=== PATIENT | female | born 1995 | race American Indian/Alaskan Native ===

== ENCOUNTER 2017-07-13 12:52 | Outpatient (CLI) | payer MEDICAID ==
[2017-07-13 13:16] VITALS: BP 103/69
[2017-07-13] MEDS ORDERED: LACTATED RINGERS 500 ML IV ONE (13:24)
[2017-07-13] MEDS ORDERED: LACTATED RINGERS 1,000 ML ONE (13:25)
[2017-07-13] MEDS ORDERED: LACTATED RINGERS 1,000 ML IV SCH (14:00)
[2017-07-13 14:01] LABS: Bacteria,Urine 1+ /HPF (Negative); Bilirubin,Urine NEG (Negative); Blood,Urine NEG (Negative); Color,Urine Amber (Yellow); Mucus,Urine 3+ /HPF
[2017-07-13 14:07] LABS: Amphetamine Screen,Urine PRESUMPTIVE NEGATIVE; Benzodiazepines Screen,Urine PRESUMPTIVE NEGATIVE; Cannabinoid Screen,Urine PRESUMPTIVE NEGATIVE; Cocaine Screen,Urine PRESUMPTIVE NEGATIVE; Methadone Screen,Urine PRESUMPTIVE NEGATIVE; Opiate Screen,Urine PRESUMPTIVE NEGATIVE
[2017-07-13] MEDS ORDERED: BRETHINE SUB-Q ONE (16:00)
== END 2017-07-13 16:40 | disposition home or self-care (01) ==
LOC: TRG 12:52
PROVIDERS: ATTEND Obstetrics & Gynecology
DX: O47.03 False labor before 37 completed weeks of gestation, third trimester (principal); Z79.899 Other long term (current) drug therapy; Z3A.32 32 weeks gestation of pregnancy
CPT/HCPCS: 36415; 59025; 80307; 81001; 82731; 96372; J3105; J7120

== ENCOUNTER 2018-09-27 06:13 | Emergency (ER) | payer MEDICAID ==
[2018-09-27 06:44] LABS: Basophils # (Auto) 0.1 K/mm3 (0.0-0.1); Basophils % (Auto) 0.8 % (0.0-1.8); Eosinophils # (Auto) 0.1 K/mm3 (0.0-0.4); Eosinophils % (Auto) 1.1 % (0.0-4.3); Hematocrit 32.1 % (30.3-42.9); Hemoglobin 10.9 gm/dl (10.1-14.3); Lymphocytes # (Auto) 2.5 K/mm3 (1.2-5.4); Lymphocytes % (Auto) 27.3 % (13.4-35.0); Mean Corpuscular HGB Conc 34 % (30-34); Mean Corpuscular Volume 94 fl (79-97); Monocytes # (Auto) 0.6 K/mm3 (0.0-0.8); Monocytes % (Auto) 6.7 % (0.0-7.3); Platelet Count 259 K/mm3 (140-440); Red Blood Count 3.43 M/mm3 (3.65-5.03); Red Cell Distribution Width 14.8 % (13.2-15.2)
[2018-09-27 06:49] LABS: Bilirubin,Urine NEG (Negative); Blood,Urine NEG (Negative); Color,Urine Straw (Yellow); Protein,Urine <15 mg/dL mg/dL (Negative); Urobilinogen,Urine < 2.0 mg/dL (<2.0)
[2018-09-27 07:18] LABS: Alanine Aminotransferase 7 units/L (7-56); Albumin 3.6 g/dL (3.9-5); BUN/Creatinine Ratio 14; Blood Urea Nitrogen 7 mg/dL (7-17); Calcium 8.5 mg/dL (8.4-10.2); Hemolysis Index 4
--- NOTE | 2018-09-27 08:58 | Emergency Department Report ---
ED Female HPI - General Chief complaint: Abdominal Pain Stated complaint: ABD/VAGINAL PAIN Time Seen by Provider: 09/27/18 08:01 Source: patient Mode of arrival: Ambulatory Limitations: No Limitations - History of Present Illness Initial comments: 23-year-old -[place] female reports pelvic pressure 4 days. Patient reports she has discharge with odor and some irritation. Patient also reports she thinks she may be . Patient is 3 para 2. Last menstrual cycle was 07/06/2018. Patient reports she's had a positive home test. Patient has no past medical history currently takes no medications on a daily basis. Patient does admit to having unprotected intercourse with 2 men. MD Complaint: vaginal discharge, possible STD -: days(s) (4) Location: suprapubic Radiation: non-radiating Quality: other (pressure) Improves with: none Worsens with: none Are you Now?: Yes Last Menstrual Period: 07/06/18 EDC: 04/12/19 Associated Symptoms: vaginal discharge. denies: vaginal bleeding, nausea/vomiting, fever/chills - Related Data Sexually active: Yes (2 minutes unprotected last 3 months) : 3 Para: 2 (5 year old 1 year old) Previous Rx's Medication Instructions Recorded Last Taken Type Phenazopyridine [Pyridium] 100 mg PO TID PRN #6 tab 04/20/15 Unknown Rx Sulfamethoxazole/Trimethoprim 1 each PO BID #14 tablet 04/20/15 Unknown Rx [Bactrim DS TAB] Ibuprofen [Motrin] 800 mg PO Q8HR PRN #30 tablet 01/07/16 Unknown Rx Nitrofurantoin [place]/M-Cryst 100 mg PO Q12HR #14 capsule 03/07/18 Unknown Rx [Macrobid CAP] metroNIDAZOLE [Flagyl] 500 mg PO Q12HR #20 tab 03/07/18 Unknown Rx Azithromycin [Zithromax TAB] 1,000 mg PO QDAY #2 tablet 09/27/18 Unknown Rx Vit No.129/Iron/Folic 1 each PO QDAY #90 tablet 09/27/18 Unknown Rx [ Tablet] metroNIDAZOLE [metroNIDAZOLE 70 gm VG QHS #7 gel.w.appl 09/27/18 Unknown Rx VAGINAL 0.75% gel] Allergies Allergy/AdvReac Type Severity Reaction Status Date / Time jp Allergy Swelling Verified 01/07/16 19:41 ED Review of Systems ROS: Stated complaint: ABD/VAGINAL PAIN Other details as noted in HPI Comment: All other systems reviewed and negative Constitutional: denies: chills, fever Eyes: denies: eye pain, eye discharge, vision change ENT: denies: ear pain, throat pain Respiratory: denies: cough, shortness of breath, wheezing Cardiovascular: denies: chest pain, palpitations Endocrine: no symptoms reported Gastrointestinal: other (pelvic pressure) Genitourinary: discharge Musculoskeletal: denies: back pain, joint swelling, arthralgia Skin: denies: rash, lesions Neurological: denies: headache, weakness, paresthesias Psychiatric: denies: anxiety, depression Hematological/Lymphatic: denies: easy bleeding, easy bruising ED Past Medical Hx - Past Medical History Previous Medical History?: Yes Hx Hypertension: No Hx Diabetes: No Hx Deep Vein Thrombosis: No Hx Renal Disease: No Hx Sickle Cell Disease: No Hx Seizures: No Hx Asthma: No Hx HIV: No - Surgical History Past Surgical History?: No - Social History Smoking Status: Never Smoker Substance Use Type: None - Medications Home Medications: Home Medications Medication Instructions Recorded Confirmed Last Taken Type Phenazopyridine [Pyridium] 100 mg PO TID PRN #6 tab 04/20/15 Unknown Rx Sulfamethoxazole/Trimethoprim 1 each PO BID #14 tablet 04/20/15 Unknown Rx [Bactrim DS TAB] Ibuprofen [Motrin] 800 mg PO Q8HR PRN #30 tablet 01/07/16 Unknown Rx Nitrofurantoin [place]/M-Cryst 100 mg PO Q12HR #14 capsule 03/07/18 Unknown Rx [Macrobid CAP] metroNIDAZOLE [Flagyl] 500 mg PO Q12HR #20 tab 03/07/18 Unknown Rx Azithromycin [Zithromax TAB] 1,000 mg PO QDAY #2 tablet 09/27/18 Unknown Rx Vit No.129/Iron/Folic 1 each PO QDAY #90 tablet 09/27/18 Unknown Rx [ Tablet] metroNIDAZOLE [metroNIDAZOLE 70 gm VG QHS #7 gel.w.appl 09/27/18 Unknown Rx VAGINAL 0.75% gel] ED Physical Exam - General Limitations: No Limitations General appearance: alert, in no apparent distress - Head Head exam: Present: atraumatic, normocephalic - Eye Eye exam: Present: normal appearance - ENT ENT exam: Present: mucous membranes moist - Neck Neck exam: Present: normal inspection - Respiratory Respiratory exam: Present: normal lung sounds bilaterally. Absent: respiratory distress - Cardiovascular Cardiovascular Exam: Present: regular rate - GI/Abdominal GI/Abdominal exam: Present: soft, normal bowel sounds. Absent: distended, tenderness, guarding, rebound - External exam: Present: normal external exam Speculum exam: Present: vaginal discharge, cervical discharge Bi-manual exam: Present: cervical motion tendernes, uterine enlargement. Absent: adnexal tenderness, adnexal mass, uterine tenderness - Extremities Exam Extremities exam: Present: normal inspection, full ROM - Back Exam Back exam: Present: normal inspection, full ROM - Neurological Exam Neurological exam: Present: alert, oriented X3 - Psychiatric Psychiatric exam: Present: normal affect, normal mood - Skin Skin exam: Present: warm, dry, intact, normal color. Absent: rash ED Course Vital Signs 09/27/18 06:15 Temperature 97.8 F Pulse Rate 108 H Respiratory 16 Rate Blood Pressure 99/68 O2 Sat by Pulse 98 Oximetry ED Medical Decision Making - Lab Data Result diagrams: 09/27/18 06:31 09/27/18 06:31 - Radiology Data Radiology results: report reviewed Patient: APOLINAR MARTINEZ MR#: [id number] : 1995 Acct:[id number] Age/Sex: 23 / F ADM Date: 09/27/18 Loc: ED Attending Dr: Ordering Physician: RAJESH ADAME Date of Service: 09/27/18 Procedure(s): US OB >= 14 weeks Fetus Accession Number(s): [id number] cc: RAJESH ADAME OB ULTRASOUND History: pelvic pain. Technique: Transabdominal ultrasound with Doppler interrogation. Gestation: Single Position: Cephalic Amniotic Fluid: Within normal limits Placenta: Anterior, left lateral Placental Grade: 1 Heart Rate: 156 BPM Cervical length: 4.7 cm (Normal > 3 cm) BPD: 5.3 cm = 22 w 1 d HC: 20.5 cm = 22 w 4 d AC: 18.3 cm = 23 w 1 d FL: 4.0 cm = 22 w 5 d HC/AC Ratio: 1.12 Cephalic Index: 75.6 Estimated Weight: 544 grams US Gest. Age = 22 w 5 d EDC: 01/26/19 Comment: Trace fluid is identified in the vertex of the heart which could represent a small pericardial effusion. Followup is recommended. IMPRESSION: Viable, single intrauterine as described. Transcribed By: TTR Dictated By: PAO BRYANT JR, MD Electronically Authenticated By: PAO BRYANT JR, MD Signed Date/Time: 09/27/18 1012 DD/ 1007 TD/TT: 09/27/18 1012 - Medical Decision Making 23-year-old -[place] female comes in for 4 day history of pelvic pressure and vaginal discharge with odor. Positive test at home and positive test in the ER. Ultrasound has been ordered for OB, wet prep and gonorrhea chlamydia test has been sent to. Ultrasound results shows the patient is 22 weeks and 5 days with pericardial effusion of the embryo heart. Wet prep shows patient has Trichomonas and candidiasis. Patient will be treated for gonorrhea and chla mydia as well as Trichomonas and bacterial vaginosis. I discussed in length with patient that she needs to follow up with [facility]. As her ultrasound shows that there is fluid around the embryo heart. I also discussed the patient she has to start care I will start patient on vitamins I will treat her for trichomonas with MetroGel she will be treated for gonorrhea Rocephin 500 mg patient will be given a prescription for azithromycin 1 g by mouth. I have listed several [facility] offices on patient's discharge summary. Critical care attestation.: If time is entered above; I have spent that time in minutes in the direct care of this critically ill patient, excluding procedure time. ED Disposition Clinical Impression: 22 weeks gestation of , Trichomonas vaginalis infection, Candidiasis of genitalia in female, Screening for STDs (sexually transmitted diseases) Disposition: DC-01 TO HOME OR SELFCARE Is pt being admited?: No Does the pt Need Aspirin: No Condition: Stable Instructions: Abdominal Pain (ED) Additional Instructions: Complete antibiotics as prescribed. Take vitamins as prescribed. It is very very important for you to get into [facility]. You need to follow up as there is fluid around the fetus heart. I have listed several [facility] providers in her discharge summary. Prescriptions: metroNIDAZOLE [metroNIDAZOLE VAGINAL 0.75% gel] 70 gm VG QHS #7 gel.w.appl Vit No.129/Iron/Folic [ Tablet] 1 each PO QDAY #90 tablet Azithromycin [Zithromax TAB] 1,000 mg PO QDAY #2 tablet Referrals: [facility] [Provider Group] - 3-5 Days [facility] [Provider Group] - 3-5 Days [facility] [Provider Group] - 3-5 Days [facility] [Provider Group] - 3-5 Days
--- NOTE | 2018-09-27 10:17 | Ultrasound Report ---
OB ULTRASOUND History: pelvic pain. Technique: Transabdominal ultrasound with Doppler interrogation. Gestation: Single Position: Cephalic Amniotic Fluid: Within normal limits Placenta: Anterior, left lateral Placental Grade: 1 Heart Rate: 156 BPM Cervical length: 4.7 cm (Normal > 3 cm) BPD: 5.3 cm = 22 w 1 d HC: 20.5 cm = 22 w 4 d AC: 18.3 cm = 23 w 1 d FL: 4.0 cm = 22 w 5 d HC/AC Ratio: 1.12 Cephalic Index: 75.6 Estimated Weight: 544 grams US Gest. Age = 22 w 5 d EDC: 01/26/19 Comment: Trace fluid is identified in the vertex of the heart which could represent a small pericardial effusion. Followup is recommended. IMPRESSION: Viable, single intrauterine as described.
[2018-09-27] MEDS ORDERED: ROCEPHIN IM ONE (10:46)
[2018-09-27] MEDS ORDERED: XYLOCAINE 1% MPF 5 mL INFILTRATI ONE (10:46)
[2018-09-27 11:20] VITALS: BP 98/51
== END 2018-09-27 11:18 | disposition home or self-care (01) ==
LOC: ED 06:13
DX: O98.312 Other infections with a predominantly sexual mode of transmission complicating pregnancy, second trimester (principal); A59.01 Trichomonal vulvovaginitis; O98.812 Other maternal infectious and parasitic diseases complicating pregnancy, second trimester; B37.3 Candidiasis of vulva and vagina; Z3A.22 22 weeks gestation of pregnancy; Z91.018 Allergy to other foods
CPT/HCPCS: 36415; 76805; 80053; 81001; 84702; 84703; 85025; 87210; 87591; 96372; 99284; J0696

== ENCOUNTER 2019-01-09 20:53 | Inpatient (IN) | payer MEDICAID ==
[2019-01-09] MEDS ORDERED: ZOFRAN IV PRN (22:04)
[2019-01-09] MEDS ORDERED: BRETHINE SUB-Q PRN (22:04)
[2019-01-09] MEDS ORDERED: AMPICILLIN/NS 2 GM/100 ML 2 GM/100 ML BAG IV ONE (22:04)
[2019-01-09] MEDS ORDERED: SUBLIMAZE IV PRN (22:04)
[2019-01-09] MEDS ORDERED: STADOL IV PRN (22:04)
[2019-01-09] MEDS ORDERED: LACTATED RINGERS 1,000 ML ONE (22:04)
[2019-01-09] MEDS ORDERED: BRETHINE IVP PRN (22:04)
[2019-01-09] MEDS ORDERED: XYLOCAINE 2% INFILTRATI ONE (22:04)
[2019-01-09] MEDS ORDERED: MINERAL OIL PO PRN (22:04)
[2019-01-09] MEDS ORDERED: TYLENOL PO ONE (22:24)
[2019-01-09 22:36] LABS: Hematocrit 34.7 % (30.3-42.9); Hemoglobin 11.4 gm/dl (10.1-14.3); Mean Corpuscular HGB Conc 33 % (30-34); Mean Corpuscular Volume 91 fl (79-97); Platelet Count 241 K/mm3 (140-440); Red Blood Count 3.79 M/mm3 (3.65-5.03); Red Cell Distribution Width 14.9 % (13.2-15.2)
[2019-01-09] MEDS ORDERED: PITOCin/NS 30 UNIT/500ML 30 UNITS/500 ML BAG IV SCH ×2 (23:00→23:45)
[2019-01-09] MEDS ORDERED: LACTATED RINGERS 1,000 ML IV SCH ×2 (23:00→23:45)
[2019-01-09 23:07] LABS: Hepatitis C Virus Antibody Non-Reactive (NonReactive)
--- NOTE | 2019-01-09 23:20 | History and Physical Report ---
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 States course was complicated by Trichomonas, which was treated. Also Vitamin D deficiency, taking Supplements. States she was co-managed with [facility] due to fluid being around the baby's heart, states that condition resolved at the end november, and she was released from [facility]. Past History Past Medical History: no pertinent history Past Surgical History: no surgical history HADOOP DEVELOPER History: trichomonas Family/Genetic History: none Social history: single - Obstetrical History Expected Date of Delivery: 01/23/19 Actual Gestation: 38 Week(s) 0 Day(s) : 3 Para: 2 Hx # Term Pregnancies: 2 Number of Living Children: 2 #1 Infant Gender: Male year: 2,013 Birthweight: 2.948 kg Method of Delivery: Vaginal Gestational age at delivery: 40 Complications: none #2 Infant Gender: Male year: 2,018 Birthweight: 2.523 kg Method of Delivery: Vaginal Gestational age at delivery: 40 Complications: none Medications and Allergies Allergies Allergy/AdvReac Type Severity Reaction Status Date / Time jp Allergy Swelling Verified 01/07/16 19:41 Home Medications Medication Instructions Recorded Confirmed Last Taken Type Sertraline [Zoloft] 5 mg PO QDAY 01/09/19 01/09/19 01/07/19 History Active Meds: Active Medications Butorphanol Tartrate (Stadol) 2 mg IV Q2H PRN PRN Reason: Pain , Severe (7-10) Ephedrine Sulfate (Ephedrine Sulfate) 10 mg IV Q2M PRN PRN Reason: Hypotension Ephedrine Sulfate (Ephedrine Sulfate) 10 mg IV Q2M PRN PRN Reason: Hypotension Fentanyl (Sublimaze) 100 mcg IV Q2H PRN PRN Reason: Labor Pain Oxytocin/Sodium Chloride (Pitocin/Ns 20 Unit/1000ml Drip) 20 units in 1,000 mls @ 125 mls/hr IV DIRECT WYATT Oxytocin/Sodium Chloride (Pitocin/Ns 30 Unit/500ml) 30 units in 500 mls @ 1 mls/hr IV TITR WYATT; Protocol Lactated Ringer's (Lactated Ringers) 1,000 mls @ 125 mls/hr IV DIRECT WYATT Last Admin: 01/09/19 22:19 Dose: 125 mls/hr Documented by: Ampicillin Sodium (Ampicillin/Ns 1 Gm/50 Ml) 1 gm in 50 mls @ 100 mls/hr IV Q4HR WYATT; Protocol Oxytocin/Sodium Chloride (Pitocin/Ns 30 Unit/500ml) 30 units in 500 mls @ 2 mls/hr IV TITR WYATT; Protocol Lactated Ringer's (Lactated Ringers) 1,000 mls @ 125 mls/hr IV DIRECT WYATT Mineral Oil (Mineral Oil) 30 ml PO QHS PRN PRN Reason: Constipation Ondansetron HCl (Zofran) 4 mg IV Q8H PRN PRN Reason: Nausea And Vomiting Terbutaline Sulfate (Brethine) 0.25 mg SUB-Q ONCE PRN PRN Reason: Hyperstimulation/Hypertonicity Terbutaline Sulfate (Brethine) 0.25 mg IVP ONCE PRN PRN Reason: Hyperstimulation/Hypertonicity Review of Systems All systems: negative - Vital Signs Vital signs: Vital Signs Pulse BP 122 H 108/66 01/09/19 21:33 01/09/19 21:33 Temp Pulse Resp BP Pulse Ox 101.1 F H 78 18 129/70 01/09/19 21:50 01/09/19 23:09 01/09/19 21:50 01/09/19 23:09 - Physical Exam Breasts: Positive: normal Cardiovascular: Other (maternal tachycardia) Abdomen: Positive: normal appearance, soft, normal bowel sounds Genitourinary (Female): Positive: normal external genitalia, normal perenium Vagina: Positive: normal moisture Uterus: Positive: enlarged Anus/Rectum: Positive: normal perianal skin Extremities: Positive: normal - Obstetrical FHR: category 2 FHR comments: FHR: 180, modrate varability, -accels, occ. mild varabile decel Uterine Contraction Monitor Mode: External Cervical Dilatation: 6 (intact; bulging bag) Cervical Effacement Percentage: 90 station: 2 Uterine Contraction Frequency (min): 2-3 Uterine Contraction Pattern: Regular Uterine Tone Measurement Phase: Resting Uterine Contraction Intensity: Moderate Results Result Diagrams: 01/09/19 22:18 All other labs normal. Assessment and Plan A: IUP @ 38 Weeks Tachycardia Maternal Tachycardia Maternal Fever Active Labor GBS unknown P: Admit to L&D per Routine Orders GBS Prophylaxis IV Fluid Bolus IV Pain Control
--- NOTE | 2019-01-10 00:53 | Progress Note ---
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 States course was complicated by Trichomonas, which was treated. Also Vitamin D deficiency, taking Supplements. States she was co-managed with [facility] due to fluid being around the baby's heart, states that condition resolved at the end of November, and she was released from [facility]. Patient reports: new complaints, movement normal, contractions Objective - Vital Signs Vital Signs: Vital Signs - 12hr 01/09/19 01/09/19 01/09/19 21:33 21:50 23:09 Temperature 101.1 F H Pulse Rate 122 H 122 H 78 Respiratory 18 Rate Blood Pressure 108/66 129/70 Blood Pressure 108/66 [Left] 01/09/19 01/09/19 01/10/19 23:25 23:40 00:09 Temperature Pulse Rate 81 97 H 110 H Respiratory Rate Blood Pressure 110/59 95/51 108/66 Blood Pressure [Left] 01/10/19 01/10/19 00:24 00:39 Temperature Pulse Rate 85 104 H Respiratory Rate Blood Pressure 116/70 97/51 Blood Pressure [Left] - Exam Breasts: normal Cardiovascular: Regular rate Lungs: Clear to auscultation, Normal air movement Abdomen: Present: normal appearance, soft, normal bowel sounds Uterus: Present: normal, firm, fundal height above umbilicus FHR: category 2 FHR comments: FHR: 160, moderate varability, -accels, +early decels Uterine Contraction Monitor Mode: External Cervical Dilatation: 7 (Moderate amount of clear fluid upon AROM @ 0044) Cervical Effacement Percentage: 80 station: 0 Uterine Contraction Frequency (min): 2 Uterine Contraction Pattern: Regular Uterine Tone Measurement Phase: Resting Uterine Contraction Intensity: Mild Extremities: normal - Labs Labs: Laboratory Results - last 24 hr 01/09/19 01/09/19 01/09/19 22:18 22:18 22:18 WBC 10.3 RBC 3.79 Hgb 11.4 Hct 34.7 MCV 91 MCH 30 MCHC 33 RDW 14.9 Plt Count 241 Sickle Cell Screen Negative Hep Bs Antigen Hepatitis C Antibody Non-reactive HIV 1&2 Antibody Rapid HIV P24 Antigen Rubella IgG Antibody Immune Blood Type O POSITIVE Antibody Screen Negative 01/09/19 01/09/19 22:18 22:18 WBC RBC Hgb Hct MCV MCH MCHC RDW Plt Count Sickle Cell Screen Hep Bs Antigen Non-reactive Hepatitis C Antibody HIV 1&2 Antibody Rapid Non react HIV P24 Antigen Non react Rubella IgG Antibody Blood Type Antibody Screen
[2019-01-10] MEDS ORDERED: NARCAN 2 MG/2 ML IV PRN (01:24)
--- NOTE | 2019-01-10 01:24 | Anesthesia Consultation ---
Anesthesia Consult and Med Hx Date of service: 01/10/19 - Airway Anesthetic Teeth Evaluation: Good ROM Head & Neck: Adequate Mental/Hyoid Distance: Adequate Mallampati Class: Class II Intubation Access Assessment: Probably Good - Pulmonary Exam CTA: Yes - Cardiac Exam Cardiac Exam: RRR - Pre-Operative Health Status ASA Pre-Surgery Classification: ASA2 Proposed Anesthetic Plan: Epidural - Pulmonary Hx Asthma: No - Cardiovascular System Hx Hypertension: No - Central Nervous System Hx Seizures: No Hx Psychiatric Problems: Yes (anxiety-takes Zoloft) - Endocrine Hx Renal Disease: No Hx Hypothyroidism: No Hx Hyperthyroidism: No - Hematic Hx Anemia: No Hx Sickle Cell Disease: No - Other Systems Hx Alcohol Use: No
[2019-01-10] MEDS ORDERED: TUCKS PAD TP PRN (01:39)
[2019-01-10] MEDS ORDERED: BENADRYL PO PRN (01:39)
[2019-01-10] MEDS ORDERED: MILK OF MAGNESIA PO PRN (01:39)
[2019-01-10] MEDS: PITOCin/NS 20 UNIT/1000ML DRIP 20 UNITS/1,000 ML BAG IV SCH ×2 (01:41→03:20)
--- NOTE | 2019-01-10 01:45 | Procedure Note ---
OB Delivery Note - Delivery Date of Delivery: 01/10/19 (0121) Surgeon: SUSHIL DOWNING Estimated blood loss: other (150) - Vaginal Delivery presentation: vertex Delivery position: OA Intrapartum events: extend. tachycardia Delivery induction: none Delivery augmentation: rupture of membranes Delivery monitor: external FHT, external uterine Route of delivery: Delivery placenta: spontaneous Delivery cord: 3 umbilical vessels Episiotomy: none Delivery laceration: none Anesthesia: epidural Delivery comments: of a live 6'2 male infant over a intact perineum under epidural anesthesia with Apgars of 8 and 9 at 0121 on 01/10/2019. directly to maternal abd/chest, skin to skin contact. Spontaneous delivery of placenta complete and intact with [place] side presenting at 0124. Fundus is firm and midline located 4 below the U. Lochia is scant. Delayed cord clamping and cutting; Cord cut by maternal grandmother. Cord blood collected; Placenta discarded. - Infant A at 1 minute: 8 at 5 minutes: 9 Infant Gender: Male (6'2)
[2019-01-10] MEDS ORDERED: fentaNYL-BUPIV 2 MCG/ML-0.125% 200 MCG/100 ML BAG EPIDURAL SCH (02:00)
[2019-01-10] MEDS ORDERED: SODIUM CHLORIDE FLUSH SYRINGE 10 ML IV PRN (02:00)
[2019-01-10] MEDS ORDERED: AMPICILLIN/NS 1 GM/50 ML 1 GM/50 ML BAG IV SCH (02:05)
[2019-01-10] MEDS: IBUPROFEN PO SCH ×2 (02:58→10:22)
[2019-01-10] MEDS: NORCO 5/325 PO PRN ×4 (04:57→21:59)
[2019-01-10] MEDS ORDERED: SERTRALINE PO SCH (10:00)
[2019-01-10] MEDS: PRENATAL VITAMIN PO SCH (10:23)
[2019-01-10 14:00] LABS: Hematocrit 29.9 % (30.3-42.9)
[2019-01-11] MEDS: ULTRAM PO PRN ×3 (02:06→21:14)
[2019-01-11] MEDS: IBUPROFEN PO SCH ×3 (06:07→20:00)
--- NOTE | 2019-01-11 09:34 | Progress Note ---
Assessment and Plan - Patient Problems (1) (normal spontaneous vaginal delivery) Current Visit: Yes Status: Acute Plan to address problem: Continue routine PP orders Anticipate d/c home tomorrow F/U in office in 6 wks (2) Anemia Current Visit: Yes Status: Acute Qualifiers: Anemia type: other cause Other causes of anemia: acute posthemorrhagic Qualified Code(s): D62 - Acute posthemorrhagic anemia Plan to address problem: Asymptomatic Ferrous sulfate 325 mg po BID Increase iron rich foods into diet Subjective - Subjective Date of service: 01/11/19 Principal diagnosis: ; Anemia Interval history: See admission H & P; OB delivery summary and PP progress notes Patient reports: appetite normal, voiding normally, flatus, pain poorly controlled (but states that Tramadol is helping more than anything else), ambulating normally : doing well () Objective - Vital Signs Latest vital signs: Vital Signs Temp Pulse Resp BP 01/11/19 00:30 98.4 F 69 19 120/76 01/10/19 15:17 98.2 F 92 H 18 140/70 Intake and Output 01/10/19 01/11/19 01/11/19 23:59 07:59 15:59 Intake Total 240 300 Balance 240 300 Intake: Oral 240 Intake, Free Water 300 Other: Total, Intake Amount 240 # Voids Void 1 - Exam Breasts: Present: normal Cardiovascular: Present: Regular rate Lungs: Present: Normal air movement Abdomen: Present: soft, normal bowel sounds Uterus: Present: firm, fundal height below umbilicus (U-1) Extremities: Present: normal Deep Tendon Reflex Grade: Normal +2 - Labs Labs: Abnormal lab results 01/10/19 Range/Units 13:48 Hgb 10.0 L (10.1-14.3) gm/dl Hct 29.9 L (30.3-42.9) %
--- NOTE | 2019-01-11 09:39 | Discharge Summary ---
Providers - Providers Date of Admission: 01/09/19 21:48 Date of discharge: 01/12/19 (1200) Attending physician: BLANCA BAIN MD Primary care physician: BLANCA BAIN MD Hospitalization Reason for admission: active labor, IUP at term Delivery: Episiotomy: none Laceration: none Other procedures: none complications: none Discharge diagnosis: IUP at term delivered, other (Anemia) Condition at discharge: Stable Disposition: [place]-01 TO HOME OR SELFCARE - Discharge Diagnoses (1) (normal spontaneous vaginal delivery) Status: Acute (2) Anemia Status: Acute Qualifiers: Anemia type: other cause Other causes of anemia: acute posthemorrhagic Qualified Code(s): D62 - Acute posthemorrhagic anemia Plan - Discharge Medications Prescriptions: Ferrous Sulfate [Ferrous Sulfate 324 MG] 324 mg PO BID 30 Days #60 tablet. traMADol [Ultram 50 MG tab] 50 mg PO Q6H PRN 14 Days #56 tablet PRN Reason: Pain, Moderate (4-6) - Provider Discharge Summary Activity: routine, no sex for 6 weeks, no heavy lifting 4 weeks, no strenuous exercise Diet: other (Iron rich diet) Instructions: routine Additional instructions: [] Smoking cessation referral if applicable(refer to patient education folder for contact #) [] Refer to [facility] Booklet Call your doctor immediately for: * Fever > 100.5 * Heavy vaginal bleeding ( >1 pad per hour) * Severe persistent headache * Shortness of breath * Reddened, hot, painful area to leg or breast * Drainage or odor from incision. * Continue oral daily iron supplementation as directed - Follow up plan Follow up: BLANCA BAIN MD [Primary Care Provider] - 6 Weeks
[2019-01-11] MEDS: FEOSOL PO SCH ×2 (10:19→21:14)
[2019-01-11] MEDS: PRENATAL VITAMIN PO SCH (10:19)
[2019-01-12] MEDS: IBUPROFEN PO SCH (01:54)
[2019-01-12] MEDS: NORCO 5/325 PO PRN (05:07)
[2019-01-12] MEDS: FEOSOL PO SCH (10:02)
[2019-01-12] MEDS: PRENATAL VITAMIN PO SCH (10:02)
[2019-01-12] MEDS: ULTRAM PO PRN (10:02)
[2019-01-12 12:01] VITALS: BP 111/69
== END 2019-01-12 12:50 | disposition home or self-care (01) | DRG 774 ==
LOC: TRG 20:53 → OBSVTOIN 21:48 → TRG 21:48 → LD 21:48 → OB 01-10 04:07
PROVIDERS: ADMIT Obstetrics & Gynecology; ATTEND Obstetrics & Gynecology
PROC: 10E0XZZ Delivery of Products of Conception, External Approach (ICD-10-PCS; principal; 2019-01-10)
PROC: 10907ZC Drainage of Amniotic Fluid, Therapeutic from Products of Conception, Via Natural or Artificial Opening (ICD-10-PCS; 2019-01-10)
PROC: 3E0R3BZ Introduction of Anesthetic Agent into Spinal Canal, Percutaneous Approach (ICD-10-PCS; 2019-01-10)
PROC: 00HU33Z Insertion of Infusion Device into Spinal Canal, Percutaneous Approach (ICD-10-PCS; 2019-01-10)
DX: O76 Abnormality in fetal heart rate and rhythm complicating labor and delivery (principal); O75.2 Pyrexia during labor, not elsewhere classified; O99.344 Other mental disorders complicating childbirth; F41.9 Anxiety disorder, unspecified; Z79.899 Other long term (current) drug therapy; O99.02 Anemia complicating childbirth; D64.9 Anemia, unspecified; Z3A.38 38 weeks gestation of pregnancy; Z37.0 Single live birth
CPT/HCPCS: 36415; 85014; 85018; 85027; 85660; 86592; 86706; 86762; 86803; 86850; 86900; 86901; 87806; G0378; J0290; J0595; J2590; J7120

== ENCOUNTER 2021-03-05 16:25 | Emergency (ER) | payer SELFPAY ==
[2021-03-05 16:41] VITALS: BP 103/68
[2021-03-05] MEDS ORDERED: SODIUM CHLORIDE 0.9% 1000 ML 1,000 ML IV ONE (16:58)
[2021-03-05] MEDS ORDERED: METOCLOPRAMIDE 10 MG TAB PO ONE (16:58)
[2021-03-05 17:25] LABS: Basophils # (Auto) 0.1 K/mm3 (0.0-0.1); Basophils % (Auto) 1.1 % (0.0-1.8); Eosinophils % (Auto) 0.3 % (0.0-4.3); Hematocrit 38.4 % (30.3-42.9); Hemoglobin 13.1 gm/dl (10.1-14.3); Lymphocytes # (Auto) 1.8 K/mm3 (1.2-5.4); Lymphocytes % (Auto) 24.8 % (13.4-35.0); Mean Corpuscular HGB Conc 34 % (30-34); Mean Corpuscular Volume 94 fl (79-97); Monocytes # (Auto) 0.5 K/mm3 (0.0-0.8); Monocytes % (Auto) 6.4 % (0.0-7.3); Platelet Count 299 K/mm3 (140-440); Red Blood Count 4.11 M/mm3 (3.65-5.03); Red Cell Distribution Width 13.8 % (13.2-15.2)
[2021-03-05 17:47] LABS: Alanine Aminotransferase 10 units/L (7-56); Albumin 4.2 g/dL (3.9-5); Blood Urea Nitrogen 14 mg/dL (7-17); Calcium 9.3 mg/dL (8.4-10.2); Hemolysis Index 11
[2021-03-05 17:48] LABS: BUN/Creatinine Ratio 23
--- NOTE | 2021-03-05 18:45 | Emergency Department Report ---
ED General Adult HPI - General Chief complaint: Abdominal Pain Stated complaint: HEADACHE,CHEST PAIN,LIGHT HEADED Time Seen by Provider: 03/05/21 16:47 Source: patient Mode of arrival: Ambulatory Limitations: No Limitations - History of Present Illness Initial comments: Patient is a 25-year-old female presents emergency room complaints of lower abdominal discomfort that began 4 days ago. She states that she is also been having nausea and vomiting. She states a couple days ago she was having diarrhea but that resolved. She states that she also has a mild headache. She states that she has been able to tolerate water. She denies any fever, dysuria, vaginal bleeding, vaginal discharge, hematochezia, melena, hematemesis. She states her last menstrual cycle was January 10. She states that she took [id number] test and reports they were positive. She has not seen anyone for this . No past medical history. No allergies to medications. /P: 3/A: 0 - Related Data Home Medications Medication Instructions Recorded Confirmed Last Taken Sertraline [Zoloft] 5 mg PO QDAY 01/09/19 01/09/19 01/07/19 Previous Rx's Medication Instructions Recorded Last Taken Type Ferrous Sulfate [Ferrous Sulfate 324 mg PO BID 30 Days #60 tablet. 01/11/19 Un known Rx 324 MG] traMADoL [Ultram 50 MG tab] 50 mg PO Q6H PRN 14 Days #56 tablet 01/11/19 Unknown Rx Acetaminophen [Tylenol] 650 mg PO Q8HR PRN #20 capsule 03/05/21 Unknown Rx Metoclopramide [Reglan] 10 mg PO Q8HR PRN #12 tab 03/05/21 Unknown Rx cephALEXin [Keflex] 500 mg PO BID 7 Days #14 cap 03/05/21 Unknown Rx Allergies Allergy/AdvReac Type Severity Reaction Status Date / Time jp Allergy Swelling Verified 01/07/16 19:41 ED Review of Systems ROS: Stated complaint: HEADACHE,CHEST PAIN,LIGHT HEADED Other details as noted in HPI Comment: All other systems reviewed and negative ED Past Medical Hx - Past Medical History Hx Hypertension: No Hx Congestive Heart Failure: No Hx Diabetes: No Hx Deep Vein Thrombosis: No Hx Renal Disease: No Hx Sickle Cell Disease: No Hx Seizures: No Hx Asthma: No Hx COPD: No Hx HIV: No - Social History Smoking Status: Former Smoker Substance Use Type: None - Medications Home Medications: Home Medications Medication Instructions Recorded Confirmed Last Taken Type Sertraline [Zoloft] 5 mg PO QDAY 01/09/19 01/09/19 01/07/19 History Ferrous Sulfate [Ferrous Sulfate 324 mg PO BID 30 Days #60 tablet. 01/11/19 Unknown Rx 324 MG] traMADoL [Ultram 50 MG tab] 50 mg PO Q6H PRN 14 Days #56 tablet 01/11/19 Unknown Rx Acetaminophen [Tylenol] 650 mg PO Q8HR PRN #20 capsule 03/05/21 Unknown Rx Metoclopramide [Reglan] 10 mg PO Q8HR PRN #12 tab 03/05/21 Unknown Rx cephALEXin [Keflex] 500 mg PO BID 7 Days #14 cap 03/05/21 Unknown Rx ED Physical Exam - General Limitations: No Limitations General appearance: alert, in no apparent distress - Head Head exam: Present: atraumatic, normocephalic - Eye Eye exam: Present: normal appearance - ENT ENT exam: Present: mucous membranes moist - Respiratory Respiratory exam: Present: normal lung sounds bilaterally. Absent: respiratory distress, wheezes, rales, rhonchi, stridor, chest wall tenderness, accessory muscle use, decreased breath sounds, prolonged expiratory - Cardiovascular Cardiovascular Exam: Present: regular rate, normal rhythm, normal heart sounds. Absent: systolic murmur, diastolic murmur, rubs, gallop - GI/Abdominal GI/Abdominal exam: Present: soft, normal bowel sounds. Absent: distended, tenderness, guarding, rebound, rigid - Neurological Exam Neurological exam: Present: alert, oriented X3 - Psychiatric Psychiatric exam: Present: normal affect, normal mood - Skin Skin exam: Present: warm, dry, intact ED Course Vital Signs 03/05/21 16:40 Temperature 97.9 F Pulse Rate 95 H Respiratory 18 Rate Blood Pressure 103/68 [Left] O2 Sat by Pulse 97 Oximetry - Reevaluation(s) Reevaluation #1: 03/05/21 20:00 Called information technology coordinator regarding the delay in ultrasounds, she states that she was doing ultrasound in labor and delivery and reports that once she finishes she will perform this patient's ultrasound ED Medical Decision Making - Lab Data Result diagrams: 03/05/21 17:12 03/05/21 17:12 Lab Results 03/05/21 03/05/21 03/05/21 Range/Units 17:12 17:12 17:12 WBC 7.4 (4.5-11.0) K/mm3 RBC 4.11 (3.65-5.03) M/mm3 Hgb 13.1 (10.1-14.3) gm/dl Hct 38.4 (30.3-42.9) % MCV 94 (79-97) fl MCH 32 (28-32) pg MCHC 34 (30-34) % RDW 13.8 (13.2-15.2) % Plt Count 299 (140-440) K/mm3 Lymph % (Auto) 24.8 (13.4-35.0) % [place] % (Auto) 6.4 (0.0-7.3) % Eos % (Auto) 0.3 (0.0-4.3) % Baso % (Auto) 1.1 (0.0-1.8) % Lymph # (Auto) 1.8 (1.2-5.4) K/mm3 [place] # (Auto) 0.5 (0.0-0.8) K/mm3 Eos # (Auto) 0.0 (0.0-0.4) K/mm3 Baso # (Auto) 0.1 (0.0-0.1) K/mm3 Seg Neutrophils % 67.4 (40.0-70.0) % Seg Neutrophils # 5.0 (1.8-7.7) K/mm3 Sodium 134 L (137-145) mmol/L Potassium 4.2 (3.6-5.0) mmol/L Chloride 99.4 (98-107) mmol/L Carbon Dioxide 20 L (22-30) mmol/L Anion Gap 19 mmol/L BUN 14 (7-17) mg/dL Creatinine 0.6 (0.6-1.2) mg/dL Estimated GFR > 60 ml/min BUN/Creatinine Ratio 23 % Glucose 81 (65-100) mg/dL Calcium 9.3 (8.4-10.2) mg/dL Total Bilirubin 0.60 (0.1-1.2) mg/dL AST 14 (5-40) units/L ALT 10 (7-56) units/L Alkaline Phosphatase 55 (35-129) units/L Total Protein 7.2 (6.3-8.2) g/dL Albumin 4.2 (3.9-5) g/dL Albumin/Globulin Ratio 1.4 % Lipase 15 (13-60) units/L HCG, Quant 812921 H (0-4) mIU/mL Urine Color (Yellow) Urine Turbidity (Clear) Urine pH (5.0-7.0) Ur Specific [place] (1.003-1.030) Urine Protein (Negative) mg/dL Urine Glucose (UA) (Negative) mg/dL Urine Ketones (Negative) mg/dL Urine Blood (Negative) Urine Nitrite (Negative) Urine Bilirubin (Negative) Urine Urobilinogen (<2.0) mg/dL Ur Leukocyte Esterase (Negative) Urine WBC (Auto) (0.0-6.0) /HPF Urine RBC (Auto) (0.0-6.0) /HPF U Epithel Cells (Auto) (0-13.0) /HPF Urine Bacteria (Auto) (Negative) /HPF Urine Mucus /HPF Urine Yeast (Budding) /HPF 03/05/21 Range/Units 17:47 WBC (4.5-11.0) K/mm3 RBC (3.65-5.03) M/mm3 Hgb (10.1-14.3) gm/dl Hct (30.3-42.9) % MCV (79-97) fl MCH (28-32) pg MCHC (30-34) % RDW (13.2-15.2) % Plt Count (140-440) K/mm3 Lymph % (Auto) (13.4-35.0) % [place] % (Auto) (0.0-7.3) % Eos % (Auto) (0.0-4.3) % Baso % (Auto) (0.0-1.8) % Lymph # (Auto) (1.2-5.4) K/mm3 [place] # (Auto) (0.0-0.8) K/mm3 Eos # (Auto) (0.0-0.4) K/mm3 Baso # (Auto) (0.0-0.1) K/mm3 Seg Neutrophils % (40.0-70.0) % Seg Neutrophils # (1.8-7.7) K/mm3 Sodium (137-145) mmol/L Potassium (3.6-5.0) mmol/L Chloride (98-107) mmol/L Carbon Dioxide (22-30) mmol/L Anion Gap mmol/L BUN (7-17) mg/dL Creatinine (0.6-1.2) mg/dL Estimated GFR ml/min BUN/Creatinine Ratio % Glucose (65-100) mg/dL Calcium (8.4-10.2) mg/dL Total Bilirubin (0.1-1.2) mg/dL AST (5-40) units/L ALT (7-56) units/L Alkaline Phosphatase (35-129) units/L Total Protein (6.3-8.2) g/dL Albumin (3.9-5) g/dL Albumin/Globulin Ratio % Lipase (13-60) units/L HCG, Quant (0-4) mIU/mL Urine Color Yellow (Yellow) Urine Turbidity Clear (Clear) Urine pH 6.0 (5.0-7.0) Ur Specific [place] 1.028 (1.003-1.030) Urine Protein 30 mg/dl (Negative) mg/dL Urine Glucose (UA) Neg (Negative) mg/dL Urine Ketones 20 (Negative) mg/dL Urine Blood Neg (Negative) Urine Nitrite Neg (Negative) Urine Bilirubin Neg (Negative) Urine Urobilinogen < 2.0 (<2.0) mg/dL Ur Leukocyte Esterase Mod (Negative) Urine WBC (Auto) 78.0 H (0.0-6.0) /HPF Urine RBC (Auto) 6.0 (0.0-6.0) /HPF U Epithel Cells (Auto) 2.0 (0-13.0) /HPF Urine Bacteria (Auto) 1+ (Negative) /HPF Urine Mucus 3+ /HPF Urine Yeast (Budding) 1+ /HPF - Radiology Data Radiology results: report reviewed Ordering Physician: ROSS DIAZ Date of Service: 03/05/21 Procedure(s): US OB transvaginal Accession Number(s): [id number] cc: ROSS DIAZ ULTRASOUND OBSTETRIC INDICATION / CLINICAL INFORMATION: , pain. Clinical Gestational Age (GA) in weeks, days: 7, 5 TECHNIQUE: Transabdominal and Transvaginal. COMPARISON: None available. FINDINGS: GESTATIONAL SAC: Well-defined oval shape and intrauterine in location. YOLK SAC: No significant abnormality. EMBRYO/FETUS: No significant abnormality. - [place]-Rump Length = 1.9 cm = 8, 3 weeks, days - Heart Rate, beats per minute (if present) = 171 ADNEXA: Right ovary is unremarkable. The left ovary is not visualized. No adnexal masses are seen. FREE FLUID: None. ADDITIONAL FINDINGS: None. IMPRESSION: 1. Single, living intrauterine with estimated sonographic age of 8, 3 weeks, days. Signer Name: Javy Patterson MD Signed: 03/05/2021 9:34 PM Workstation Name: [id number] Transcribed By: SS Dictated By: Javy Patterson MD Electronically Authenticated By: Javy Patterson MD Signed Date/Time: 03/05/212133 DD/ 31 TD/TT: - Medical Decision Making Patient is a 25-year-old female presents emergency room complaints of lower abdominal discomfort that began 4 days ago. She states that she is also been having nausea and vomiting. She states a couple days ago she was having diarrhea but that resolved. She states that she also has a mild headache. She states that she has been able to tolerate water. She denies any fever, dysuria, vaginal bleeding, vaginal discharge, hematochezia, melena, hematemesis. She states her last menstrual cycle was January 10. She states that she took [id number]-kjn-fnrqqhj test and reports they were positive. She has not seen anyone for this . No past medical history. No allergies to medications. /P: 3/A: 0. vitals are stable. hCG quant is [id number]. Labs are stable. UA shows evidence of UTI. OB ultrasound: 1. Single, living intrauterine with estimated sonographic age of 8, 3 weeks, days. Patient given 1 L normal saline and Reglan while in the emergency department improvement of her symptoms. Discussed all results with patient answered questions. Advised patient Please take medication as prescribed. Increase your water intake. Please take a vitamin [id number]. Practice pelvic rest. Follow-up with B[facility]YCLE R[facility]ER. Return to emergency room for any new or worsening symptoms. Critical care attestation.: If time is entered above; I have spent that time in minutes in the direct care of this critically ill patient, excluding procedure time. ED Disposition Clinical Impression: UTI (urinary tract infection) Qualifiers: Urinary tract infection type: acute cystitis Hematuria presence: without hematuria Qualified Code(s): N30.00 - Acute cystitis without hematuria Abdominal pain Qualifiers: Abdominal location: lower abdomen, unspecified Qualified Code(s): R10.30 - Lower abdominal pain, unspecified Nausea & vomiting Qualifiers: Vomiting type: unspecified Vomiting Intractability: non-intractable Qualified Code(s): R11.2 - Nausea with vomiting, unspecified Qualifiers: Weeks of gestation: 8 weeks Qualified Code(s): Z3A.08 - 8 weeks gestation of Disposition: HOME / SELF CARE / HOMELESS Is pt being admited?: No Does the pt Need Aspirin: No Condition: Stable Instructions: Abdominal Pain During , Nhbu-mq-Goro, Urinary Tract Infection, Adult, Abdominal Pain (ED) Additional Instructions: Please take medication as prescribed. Increase your water intake. Please take a vitamin [id number]. Practice pelvic rest. Follow-up with BICYCLE RACER. Return to emergency room for any new or worsening symptoms. Prescriptions: cephALEXin [Keflex] 500 mg PO BID 7 Days #14 cap Metoclopramide [Reglan] 10 mg PO Q8HR PRN #12 tab PRN Reason: vomiting Acetaminophen [Tylenol] 650 mg PO Q8HR PRN #20 capsule PRN Reason: pain Referrals: HEATHER VILLARREAL MD [Staff Physician] - 2-3 Days Time of Disposition: 21:40 Print Language: TAJIK
[2021-03-05] MEDS ORDERED: ACETAMINOPHEN 325 MG TAB PO ONE (20:15)
[2021-03-05 20:23] LABS: Bacteria,Urine 1+ /HPF (Negative); Bilirubin,Urine NEG (Negative); Blood,Urine NEG (Negative); Color,Urine Yellow (Yellow); Mucus,Urine 3+ /HPF; Urobilinogen,Urine < 2.0 mg/dL (<2.0)
--- NOTE | 2021-03-05 21:38 | Ultrasound Report ---
ULTRASOUND OBSTETRIC INDICATION / CLINICAL INFORMATION: , pain. Clinical Gestational Age (GA) in weeks, days: 7, 5 TECHNIQUE: Transabdominal and Transvaginal. COMPARISON: None available. FINDINGS: GESTATIONAL SAC: Well-defined oval shape and intrauterine in location. YOLK SAC: No significant abnormality. EMBRYO/FETUS: No significant abnormality. - [place]-Rump Length = 1.9 cm = 8, 3 weeks, days - Heart Rate, beats per minute (if present) = 171 ADNEXA: Right ovary is unremarkable. The left ovary is not visualized. No adnexal masses are seen. FREE FLUID: None. ADDITIONAL FINDINGS: None. IMPRESSION: 1. Single, living intrauterine with estimated sonographic age of 8, 3 weeks, days. Signer Name: Javy Patterson MD Signed: 03/05/2021 9:34 PM Workstation Name: [id number]
--- NOTE | 2021-03-05 21:38 | Ultrasound Report ---
ULTRASOUND OBSTETRIC INDICATION / CLINICAL INFORMATION: , pain. Clinical Gestational Age (GA) in weeks, days: 7, 5 TECHNIQUE: Transabdominal and Transvaginal. COMPARISON: None available. FINDINGS: GESTATIONAL SAC: Well-defined oval shape and intrauterine in location. YOLK SAC: No significant abnormality. EMBRYO/FETUS: No significant abnormality. - [place]-Rump Length = 1.9 cm = 8, 3 weeks, days - Heart Rate, beats per minute (if present) = 171 ADNEXA: Right ovary is unremarkable. The left ovary is not visualized. No adnexal masses are seen. FREE FLUID: None. ADDITIONAL FINDINGS: None. IMPRESSION: 1. Single, living intrauterine with estimated sonographic age of 8, 3 weeks, days. Signer Name: Javy Patterson MD Signed: 03/05/2021 9:34 PM Workstation Name: [id number]
== END 2021-03-05 22:05 | disposition home or self-care (01) ==
LOC: ED 16:25
DX: O23.41 Unspecified infection of urinary tract in pregnancy, first trimester (principal); O26.891 Other specified pregnancy related conditions, first trimester; R10.30 Lower abdominal pain, unspecified; O21.9 Vomiting of pregnancy, unspecified; Z3A.08 8 weeks gestation of pregnancy; Z87.891 Personal history of nicotine dependence; Z91.018 Allergy to other foods; Z79.899 Other long term (current) drug therapy
CPT/HCPCS: 36415; 76801; 76817; 80053; 81001; 83690; 84702; 85025; 87086; 96360; 99284; J7030

== ENCOUNTER 2021-06-13 14:15 | Emergency (ER) | payer MEDICAID | END 2021-06-14 08:07 | disposition left against medical advice (07) | LOC: ED 14:15 | DX: M54.9 Dorsalgia, unspecified (principal); Z53.21 Procedure and treatment not carried out due to patient leaving prior to being seen by health care provider ==

== ENCOUNTER 2021-06-13 14:45 | Outpatient (CLI) | payer MEDICAID ==
[2021-06-13 15:16] VITALS: BP 105/56
[2021-06-13] MEDS ORDERED: ACETAMINOPHEN 500 MG TAB PO ONE (15:56)
[2021-06-13] MEDS ORDERED: ACETAMINOPHEN 500 MG TAB ONE (15:56)
--- NOTE | 2021-06-13 18:22 | Event Note ---
Date: 06/13/21 Pt with c/o DFM, increased vaginal discharge, and abdominal pain. Pt states, "It hurts when he's moving". Denies LOF as if water is broken, contractions, and VB. Reports H/O x3 in 2013, 2018, and 2019 with biggest baby 6#8oz and smallest 5#3oz. Denies and delivery complications. Denies medical and surgical history. Reports [employer] history with trichomoniasis treated in 2018. Denies having current risk of STD and having any recent exposures. Exam with closed and thick cervix, scant amount of white vaginal discharge, no pooling or LOF seen. FHT's appropriate for gestation per ED early ultrasound with JOHANA. +FM palpated on exam, abdomen soft and non-tender. Ultrasound with IRISH WNL. Pt upset and reports dental service technician did not reveal gender of baby for her. Options for outpatient ultrasound in clinic discussed. Precautions and need for care d/w pt and her guest. OB list given. Dr. Bravo made aware. Pt discharged stable and ambulatory.
--- NOTE | 2021-06-13 18:34 | Ultrasound Report ---
US OB limited INDICATION: IRISH. TECHNIQUE: Transabdominal. COMPARISON: None available. FINDINGS: There is a single intrauterine . Heart Rate: 150 beats per minute. Amniotic Fluid Volume: normal Amniotic Fluid Index (IRISH) in cm (if calculated): 8.8. IMPRESSION: 1. Amniotic fluid is normal. Signer Name: Blayne Monet MD Signed: 06/13/2021 6:30 PM Workstation Name: [id number]
== END 2021-06-13 18:14 | disposition home or self-care (01) ==
LOC: TRG 14:45 → APU 14:47 → TRG 18:14
PROVIDERS: ATTEND Obstetrics & Gynecology
DX: O36.8120 Decreased fetal movements, second trimester, not applicable or unspecified (principal); Z3A.22 22 weeks gestation of pregnancy
CPT/HCPCS: 59025; 76815